=== PATIENT | female | born 1940 | race Caucasian/White ===

== ENCOUNTER 2019-05-04 15:56 | Emergency (ER) | payer MEDICARE, BC ==
[~2019-05-04] VITALS: Ht 152.4 cm; Wt 61.2 kg
--- NOTE | 2019-05-04 16:05 | NUR ---
Pt [id number], lac and hematoma at the back of the head s/p fall. -KO, -NV, -SOB. PT [id number], BREATHING EVEN AND UNLABORED ON ROOM AIR W/ NAD. Pt connected to the monitor and pox.
--- NOTE | 2019-05-04 16:14 | NUR ---
PT TAKEN TO CT
[2019-05-04 17:30] VITALS: BP 145/81
--- NOTE | 2019-05-04 17:31 | NUR ---
Patient discharged to home in stable condition. Written and verbal after care instructions given. Patient verbalizes understanding of instruction.
== END 2019-05-04 17:31 | disposition home or self-care (01) ==
LOC: ER 15:58
DX: S01.01XA Laceration without foreign body of scalp, initial encounter (principal); S09.8XXA Other specified injuries of head, initial encounter; I10 Essential (primary) hypertension; G20 Parkinson's disease; J45.909 Unspecified asthma, uncomplicated; Z98.890 Other specified postprocedural states; Z60.2 Problems related to living alone; W01.198A Fall on same level from slipping, tripping and stumbling with subsequent striking against other object, initial encounter; Y93.89 Activity, other specified; Y92.89 Other specified places as the place of occurrence of the external cause; Y99.8 Other external cause status
CPT/HCPCS: 70450; 99284; A6403